=== PATIENT | female | born 1990 | race American Indian/Alaskan Native ===

== ENCOUNTER 2020-02-03 22:57 | Emergency (ER) | payer OTHER ==
[2020-02-03 23:14] VITALS: BP 112/78
[2020-02-04] MEDS ORDERED: AMOXICILLIN/K CLAV 250-62.5MG/5 ML ORAL SYRINGE PO ONE (01:55)
[2020-02-04] MEDS ORDERED: ACETAMINOPHEN 325 MG/10.15 ML ORAL LIQD UNIT DOSE PO ONE (01:55)
--- NOTE | 2020-02-04 02:14 | Emergency Department Report ---
ED General Adult HPI - General Chief complaint: Dental/Oral Stated complaint: TOOTH PAIN MIGRAINE Source: patient Mode of arrival: Ambulatory Limitations: No Limitations - History of Present Illness Initial comments: Patient is a A0 29-year-old -[place]ir[place] female who is approximately 26 weeks gestation and presents to the ED with complaint of acute onset persistent painful swollen right mandibular gingiva and severely painful right mandibular premolar molar toothache for the last 1 week, worse in the last 2 days. Patient states that she has been taking [id number] medication mainly Orajel with no relief. Patient denies dizziness, syncope, chest pain, shortness of breath, nausea, vomiting, sore throat, fever, chills, headache, sore throat, abdominal pain, vaginal bleeding, vaginal discharge, diarrhea or change in vision or traumatic injury. MD Complaint: right mandibular premolar and molar toothache; swollen painful gum -: Sudden, week(s) (1) Location: mouth Radiation: non-radiation Severity scale (0 -10): 7 Quality: aching, sharp Consistency: constant Improves with: none Worsens with: eating Associated Symptoms: denies other symptoms. denies: confusion, chest pain, cough, fever/chills, headaches, loss of appetite, malaise, nausea/vomiting, rash, seizure, shortness of breath, syncope, weakness Treatments Prior to Arrival: none - Related Data Previous Rx's Medication Instructions Recorded Last Taken Type Acetaminophen [Tylenol] 500 mg PO Q6HR PRN #30 tablet 02/04/20 Unknown Rx Clindamycin Palmitate HCl 20 ml PO Q8H #600 ml 02/04/20 Unknown Rx [Clindamycin Pediatric] Allergies Allergy/AdvReac Type Severity Reaction Status Date / Time No Known Allergies Allergy Verified 02/04/20 01:59 ED Review of Systems ROS: Stated complaint: TOOTH PAIN MIGRAINE Other details as noted in HPI Constitutional: denies: chills, fever Eyes: denies: eye pain, eye discharge, vision change ENT: dental pain (painful right mandibular premolar molar teeth; swollen painful right mandibular gingiva). denies: ear pain, throat pain, congestion Respiratory: denies: cough, shortness of breath, wheezing Cardiovascular: denies: chest pain, palpitations Endocrine: no symptoms reported Gastrointestinal: denies: abdominal pain, nausea, diarrhea Genitourinary: denies: urgency, dysuria, discharge Musculoskeletal: denies: back pain, joint swelling, arthralgia Skin: denies: rash, lesions Neurological: headache. denies: weakness, paresthesias Psychiatric: denies: anxiety, depression Hematological/Lymphatic: denies: easy bleeding, easy bruising ED Past Medical Hx - Past Medical History Previous Medical History?: No - Surgical History Past Surgical History?: No - Social History Smoking Status: Never Smoker Substance Use Type: None - Medications Home Medications: Home Medications Medication Instructions Recorded Confirmed Last Taken Type Acetaminophen [Tylenol] 500 mg PO Q6HR PRN #30 tablet 02/04/20 Unknown Rx Clindamycin Palmitate HCl 20 ml PO Q8H #600 ml 02/04/20 Unknown Rx [Clindamycin Pediatric] ED Physical Exam - General Limitations: No Limitations General appearance: alert, in no apparent distress - Head Head exam: Present: atraumatic, normocephalic, normal inspection - Eye Eye exam: Present: normal appearance, PERRL, EOMI Pupils: Present: normal accommodation - ENT ENT exam: Present: mucous membranes moist, TM's normal bilaterally, normal external ear exam, other (Swollen, severely tender right mandibular gingiva; severely tender right mandibular premolar and molar teeth) - Neck Neck exam: Present: normal inspection, full ROM. Absent: tenderness - Respiratory Respiratory exam: Present: normal lung sounds bilaterally. Absent: respiratory distress, wheezes, rales, chest wall tenderness, accessory muscle use, decreased breath sounds, prolonged expiratory - Cardiovascular Cardiovascular Exam: Present: regular rate, normal rhythm, normal heart sounds. Absent: systolic murmur, diastolic murmur, rubs, gallop - GI/Abdominal GI/Abdominal exam: Present: soft, normal bowel sounds, other (Gravid abdomen). Absent: distended, tenderness, guarding - Extremities Exam Extremities exam: Present: normal inspection, full ROM, normal capillary refill - Back Exam Back exam: Present: normal inspection, full ROM. Absent: tenderness, CVA tenderness (R), CVA tenderness (L), muscle spasm, paraspinal tenderness - Neurological Exam Neurological exam: Present: alert, oriented X3, CN II-XII intact, normal gait, reflexes normal - Psychiatric Psychiatric exam: Present: normal affect, normal mood - Skin Skin exam: Present: warm, dry, intact, normal color. Absent: rash ED Course Vital Signs 02/03/20 23:10 Temperature 98.6 F Pulse Rate 68 Respiratory 18 Rate Blood Pressure 112/78 [Left] O2 Sat by Pulse 97 Oximetry ED Medical Decision Making - Medical Decision Making This is a A0 29-year-old -[place] female who is approximately 26 weeks gestation and presents to the ED with complaint of acute onset persistent painful swollen right mandibular gingiva and severely painful right mandibular premolar molar toothache for the last 1 week, worse in the last 2 days. Patient states that she has been taking [id number] medication mainly Orajel with no relief. In the ED, patient is alert and oriented x3 and is not in distress. Patient was treated for pain in the ED with Tylenol and also given initial oral antibiotics in the ED. On reevaluation, patient's pain is well controlled medications. Patient will discharge home on oral antibiotics and pain medications and was advised to follow-up with her dentist [employer] [facility] physician or primary care physician in 7 to 10 days for reevaluation or return to the ED immediately if symptoms get worse. - Differential Diagnosis Dental abscess; gingivitis; dental caries Critical care attestation.: If time is entered above; I have spent that time in minutes in the direct care of this critically ill patient, excluding procedure time. ED Disposition Clinical Impression: Dental abscess, Acute gingivitis, Dental caries Disposition: TO HOME OR SELFCARE Is pt being admited?: No Does the pt Need Aspirin: No Condition: Stable Instructions: Gingivitis (ED), Dental Abscess (ED), Dental Caries (ED) Additional Instructions: Take medication with food, drink plenty of fluids and follow-up with your primary care physician or dentist in 7 to 10 days for reevaluation. Return to the ED immediately if symptoms get worse. Prescriptions: Acetaminophen [Tylenol] 500 mg PO Q6HR PRN #30 tablet PRN Reason: Pain , Severe (7-10) Clindamycin Palmitate HCl [Clindamycin Pediatric] 20 ml PO Q8H #600 ml Referrals: [facility] [Outside] - 7-10 days Time of Disposition: 02:09 Print Language: BELARUSIAN
== END 2020-02-04 02:50 | disposition home or self-care (01) ==
LOC: ED 22:57
DX: O99.612 Diseases of the digestive system complicating pregnancy, second trimester (principal); K02.9 Dental caries, unspecified; K04.7 Periapical abscess without sinus; K05.00 Acute gingivitis, plaque induced; Z3A.26 26 weeks gestation of pregnancy; Z79.2 Long term (current) use of antibiotics; Z79.899 Other long term (current) drug therapy
CPT/HCPCS: 99282

== ENCOUNTER 2020-04-05 19:05 | Outpatient (CLI) | payer OTHER ==
[2020-04-05 19:27] VITALS: BP 110/72
[2020-04-05] MEDS ORDERED: LACTATED RINGERS 1,000 ML IV ONE (19:36)
[2020-04-05 22:01] LABS: Amphetamine Screen,Urine PRESUMPTIVE NEGATIVE; Benzodiazepines Screen,Urine PRESUMPTIVE NEGATIVE; Cannabinoid Screen,Urine PRESUMPTIVE NEGATIVE; Cocaine Screen,Urine PRESUMPTIVE NEGATIVE; Methadone Screen,Urine PRESUMPTIVE NEGATIVE; Opiate Screen,Urine PRESUMPTIVE NEGATIVE
--- NOTE | 2020-04-05 22:10 | Ultrasound Report ---
ULTRASOUND BIOPHYSICAL PROFILE INDICATION / CLINICAL INFORMATION: ISMAEL. well-being. COMPARISON: None available. FINDINGS: BREATHING MOVEMENT = 2 GROSS BODY MOVEMENT = 2 TONE = 2 QUALITATIVE AMNIOTIC FLUID VOLUME = 2 TOTAL BIOPHYSICAL SCORE = 8/8 AMNIOTIC FLUID INDEX (cm) = 8.8 PRESENTATION: Cephalic. HEART RATE (beats per minute): 177 IMPRESSION: 1. biophysical profile = 8/8 borderline decreased ISMAEL of 8.8 Signer Name: Man Goldstein MD Signed: 04/05/2020 10:05 PM Workstation Name: [id number]
== END 2020-04-05 22:27 | disposition home or self-care (01) ==
LOC: TRG 19:05 → APU 19:06 → TRG 22:27
PROVIDERS: ATTEND Obstetrics & Gynecology
DX: O36.8130 Decreased fetal movements, third trimester, not applicable or unspecified (principal); Z3A.35 35 weeks gestation of pregnancy
CPT/HCPCS: 59025; 76815; 76819; 80307; 96360; J7120